=== PATIENT | female | born 1960 | race Caucasian/White ===

== ENCOUNTER → 2016-12-18 | Outpatient (CLI) | payer OTHER | LOC: BMCIMAGING 14:08 | DX: Z12.31 Encounter for screening mammogram for malignant neoplasm of breast (principal) | CPT/HCPCS: G0202 ==

== ENCOUNTER → 2017-08-01 | Outpatient (CLI) | payer OTHER | LOC: EDSTATUS 09:56 → FIMAGING 10:52 | PROVIDERS: ATTEND Internal Medicine Critical Care Medicine | DX: R09.02 Hypoxemia (principal) ==

== ENCOUNTER → 2018-05-29 | Outpatient (CLI) | payer OTHER | LOC: BMCIMAGING 13:44 | PROVIDERS: ATTEND Internal Medicine | DX: Z12.31 Encounter for screening mammogram for malignant neoplasm of breast (principal); Z80.3 Family history of malignant neoplasm of breast ==

== ENCOUNTER 2018-08-20 05:45 | Day surgery (SDC) | payer OTHER ==
[2018-08-20] MEDS ORDERED: LR 1,000 ML IV ONE (05:55)
[2018-08-20] MEDS ORDERED: LIDOCAINE 1% 2 ML INJ ID PRN (05:55)
[2018-08-20] MEDS ORDERED: MIDAZOLAM 2 MG/2 ML VIAL IVP ONE (06:55)
--- NOTE | 2018-08-20 06:55 | PDANEPAE ---
ANE History of Present Illness Hysteroscopy, morcellator, possible D&C ANE Past Medical History - Cardiovascular History Hx Hypertension: No Hx Arrhythmias: No Hx Chest Pain: No Hx Coronary Artery / Peripheral Vascular Disease: No Hx CHF / Valvular Disease: No Hx Palpitations: No Cardiovascular History Comment: pt's BP and BS run low - Pulmonary History Hx COPD: No Hx Asthma/Reactive Airway Disease: No Hx Recent Upper Respiratory Infection: No Hx Oxygen in Use at Home: Yes O2 in Use at Home (L/minute): 2-3L at noc Hx Sleep Apnea: No Sleep Apnea Screening Result - Last Documented: Negative Pulmonary History Comment: nocturnal hypoxia - Neurologic History Hx Cerebrovascular Accident: No Hx Seizures: No Hx Dementia: No - Endocrine History Hx Diabetes: No - Renal History Hx Renal Disorders: No - Liver History Hx Hepatic Disorders: No - Neurological & Psychiatric Hx Hx Neurological and Psychiatric Disorders: No - Cancer History Hx Cancer: No - Congenital Disorder History Hx Congenital Disorders: No - GI History Hx Gastrointestinal Disorders: No - Other Health History Other Health History: none - Chronic Pain History Chronic Pain: No - Surgical History Prior Surgeries: none in last 5 yrs ANE Review of Systems Review of systems is: negative Review of Systems: O2 noct. only - Exercise capacity METS (RN): 6 METS ANE Patient History - Allergies Allergies/Adverse Reactions: codeine Allergy (Verified 08/13/18 12:52) Vomiting - Home Medications Home medications: home medication list seen and reviewed Home Medications: Nature Thyroid 08/13/18 [Last Taken 08/19/18 08:00] - NPO status NPO Status: no food or drink >8 hours NPO Since - Liquids (Date): 08/19/18 NPO Since - Liquids (Time): 22:00 NPO Since - Solids (Date): 08/19/18 NPO Since - Solids (Time): 19:30 - Anes Hx Anes Hx: no prior problems - Smoking Hx Smoking Status: Never smoked - Family Anes Hx Family Anes Hx: none Family Hx Anesthesia Complications: none ANE Labs/Vital Signs - Vital Signs Vital Signs: reviewed preoperatively; see RN documention for details Blood Pressure: 88/67 Heart Rate: 66 Respiratory Rate: 10 O2 Sat (%): 94 Height: 162.56 cm Weight: 57.606 kg ANE Physical Exam - Airway Neck exam: FROM Mallampati Score: Class 1 - Pulmonary Pulmonary: no respiratory distress - Cardiovascular Cardiovascular: regular rate and rhythym - ASA Status ASA Status: II ANE Anesthesia Plan Anesthesia Plan: GA w LMA
[2018-08-20] MEDS ORDERED: ONDANSETRON 4 MG/2 ML VIAL ONE (07:13)
[2018-08-20] MEDS ORDERED: LIDOCAINE 2% 100 MG/5 ML SYR ONE (07:13)
[2018-08-20] MEDS ORDERED: PROPOFOL 200 MG/20 ML VIAL ONE (07:13)
[2018-08-20] MEDS ORDERED: DEXAMETHASONE 4 MG/ML VIAL ONE (07:13)
[2018-08-20] MEDS ORDERED: fentaNYL 100 MCG/2 ML INJ ONE (07:13)
--- NOTE | 2018-08-20 07:20 | PDHPUP ---
History & Physical Update H&P update statement: This history and physical update is based on an assessment of the patient which was completed after admission or registration (within 24 hours), but prior to the surgery/procedure. H&P update: H&P reviewed & patient examined, no change in patient's condition since H&P completed
[2018-08-20] MEDS ORDERED: KETOROLAC 30 MG/1 ML SDV ONE (07:53)
--- NOTE | 2018-08-20 08:10 | POSTOPPROG ---
Post Op Note Date of Operation: 08/20/18 Surgeon: Celestina Nugent Anesthesiologist: Mauro March Anesthesia: LMA Pre-op Diagnosis: DUB, polyps Post-op Diagnosis: same Indication: same Procedure: H/S polypectomy, D &C Findings: 3 polyps Inf/Abcess present in the surg proc area at time of surgery?: No EBL: Minimal Complications: none
[2018-08-20] MEDS ORDERED: PROMETHAZINE HCL 25 MG/ML INJ IVP PRN (08:37)
[2018-08-20] MEDS ORDERED: ONDANSETRON 4 MG/2 ML VIAL IVP PRN (08:37)
[2018-08-20] MEDS ORDERED: DEXAMETHASONE 4 MG/ML VIAL IVP PRN (08:37)
[2018-08-20] MEDS ORDERED: HYDROCODONE/APAP 5/325 TAB PO PRN (08:37)
[2018-08-20] MEDS ORDERED: ACETAMINOPHEN 500 MG TAB PO PRN (08:37)
[2018-08-20] MEDS ORDERED: fentaNYL 100 MCG/2 ML INJ IVP PRN (08:37)
[2018-08-20] MEDS ORDERED: HYDROmorphONE/DILAUDID 2 MG/ML INJ IVP PRN (08:37)
[2018-08-20] MEDS ORDERED: oxyCODONE IR 5 MG TAB PO PRN (08:37)
[2018-08-20] MEDS ORDERED: NALOXONE HCL 0.4 MG/ML INJ IVP PRN (08:37)
--- NOTE | 2018-08-20 08:38 | POSTANESTH ---
Post Anesthetic Evaluation Cardiovascular Status: Normal, Stable, Similar to Pre-Op Cond Respiratory Status: Normal, Stable, Similar to Pre-op Cond. Level of Consciousness/Mental Status: Can Participate in Eval, Mildly Sleepy, Arousable Pain Control: Adequate, Prn Tx Ordered Nausea/Vomiting Control: Adequate, Prn Tx Ordered Complications Possibly Related to Anesthesia: None Noted
[2018-08-20 09:25] VITALS: BP 101/57
--- NOTE | 2018-08-20 12:17 | GOP ---
DATE OF OPERATION: 08/20/2018 SURGEON: Celestina Nugent MD ANESTHESIA: General LMA. ANESTHESIOLOGIST: Mauro Leon MD. PREOPERATIVE DIAGNOSIS: 1. Dysfunctional uterine bleeding/postmenopausal bleeding. 2. Endometrial polyps. POSTOPERATIVE DIAGNOSIS: 1. Dysfunctional uterine bleeding/postmenopausal bleeding. 2. Endometrial polyps. PROCEDURE PERFORMED: Hysteroscopic polypectomy and dilation and curettage. FINDINGS: She had 2-3 polyps. One is on the anterior wall. The 2nd is on the lower uterine segment anterior wall and normal tubal ostia. INDICATIONS: Patient is a 57-year-old who has been undergoing hormone replacement therapy with Dr. Epifanio King, and this has been over the past couple years to be pellets that contain estradiol and testosterone and takes oral progesterone therapy. She has had on-and-off bleeding on these pellets a nd referred here by Dr. Leah Marie for further evaluation. Ultrasound sonohysterogram shows 1 disti nct polyp and slightly thickened endometrium. Recommended hysteroscopic removal of the polyps and D and C to get a tissue diagnosis and help with the bleeding. DESCRIPTION OF PROCEDURE: With informed consent signed, patient was taken to the operating table, pl aced under general anesthesia and then placed in the low dorsal lithotomy position, prepped and drape d in the usual sterile fashion. Bladder previously emptied. Time-out occurred and then a speculum p laced. Tenaculum placed on the anterior lip of the cervix. Cervix dilated to 6 mm. A 6 mm hysteros cope placed into the uterine cavity using normal saline as a filling medium. Findings as noted above . The rotary blade for the 6 mm scope placed into the hysteroscope and resection of these polyps don e without complication and then further tissue removal of the endometrial sidewalls done for a D and C effect. Once it was felt that all the endometrial tissue had been removed, the hysteroscope remove d. Net fluid deficit was 110 cc. The patient placed in supine position, awakened on the operating t able, and taken to recovery room in stable condition. Tolerated procedure well. COMPLICATIONS: None. Copy requested to: Dr. Yuniel King [id number] [address] /[id number]/MODL
== END 2018-08-20 09:35 | disposition home or self-care (01) ==
LOC: FSGY 05:45
PROVIDERS: ATTEND Obstetrics & Gynecology Gynecology
PROC: 0UDB8ZX Extraction of Endometrium, Via Natural or Artificial Opening Endoscopic, Diagnostic (ICD-10-PCS; principal; 2018-08-20 07:15)
PROC: 0U9 Female Reproductive System, Drainage (ICD-10-PCS; principal; 2018-08-20 07:15)
DX: N84.0 Polyp of corpus uteri (principal); N95.0 Postmenopausal bleeding; Z79.890 Hormone replacement therapy
CPT/HCPCS: 58558; C1782; J1100; J1885; J2001; J2250; J2405; J2704; J3010